=== PATIENT | male | born 1980 | race Caucasian/White ===

== ENCOUNTER → 2017-05-21 | Outpatient (CLI) | payer OTHER ==
--- NOTE | 2017-05-21 10:56 | US ---
EXAMINATION TYPE: US carotid duplex BILAT DATE OF EXAM: 05/21/2017 COMPARISON: US carotid March 20, 2016 CLINICAL HISTORY: I65.29 Carotid occlusion and stenosis. Dizziness, numbness and tingling left side, pt states history of left endart in 2013 EXAM MEASUREMENTS: RIGHT: Peak Systolic Velocity (PSV) cm/sec ----- Right CCA: 95.2 ----- Right ICA: 105.6 ----- Right ECA: 186.5 ICA/CCA ratio: 1.1 RIGHT: End Diastole cm/sec ----- Right CCA: 22.6 ----- Right ICA: 44.8 ----- Right ECA: 17.0 LEFT: Peak Systolic Velocity (PSV) cm/sec ----- Left CCA: 94.1 ----- Left ICA: 117.3 ----- Left ECA: 198.2 ICA/CCA ratio: 1.2 LEFT: End Diastole cm/sec ----- Left CCA: 30.3 ----- Left ICA: 46.1 ----- Left ECA: 28.8 VERTEBRALS (direction of flow): Right Vertebral: Antegrade Left Vertebral: Antegrade Rhythm: Normal Soft plaque left bulb extending into proximal ICA, increased when compared to previous with no evid ence of significant stenosis Elevated velocities bilateral ECA's as seen on previous Grayscale images show mild peripheral plaque at right carotid bulb. There is redemonstration of sever e plaque left carotid bulb prominent than prior study seen best image [id number]. Peak systolic velocity me asurements and ratios remain within normal limits. Increased peak systolic velocity bilateral externa l carotid arteries is again seen. IMPRESSION: Worsening focal atherosclerotic change left carotid bulb with stenosis proximal internal carotid artery approaching but felt just under 50%.
== END | disposition home or self-care (01) ==
LOC: RADUSWWP 10:11
PROVIDERS: ATTEND Family Medicine
DX: I65.22 Occlusion and stenosis of left carotid artery (principal)
CPT/HCPCS: 93880

== ENCOUNTER → 2017-10-14 | Outpatient (CLI) | payer OTHER ==
[2017-10-14 12:07] LABS: T4, Free (Free Thyroxine) 0.97 ng/dL (0.78-2.19)
[2017-10-14 17:57] LABS: Iron Saturation 59.9 (15.00-50.00)
== END | disposition home or self-care (01) ==
LOC: LABWHC1 09:39
PROVIDERS: ATTEND Nurse Practitioner Acute Care
DX: E55.9 Vitamin D deficiency, unspecified (principal); G35 Multiple sclerosis
CPT/HCPCS: 36415; 82306; 82607; 83540; 83550; 84207; 84439; 84443; 84466; 84481

== ENCOUNTER → 2017-10-29 | Outpatient (CLI) | payer OTHER ==
--- NOTE | 2017-10-30 19:04 | MR ---
EXAMINATION TYPE: MR cárdenas wo con DATE OF EXAM: 10/29/2017 COMPARISON: NONE HISTORY: Cervicalgia / M54.5 Lumbago TECHNIQUE: T1 and T2 axial and sagittal images of the lumbar spine are submitted. FINDINGS: There is no abnormal signal seen within the visualized spinal cord or paraspinal soft tissu es. At L1-2 there is no disc herniation or canal stenosis. No foraminal encroachment. Facet arthropathy n oted. At L2-3 there is no disc herniation or canal stenosis. No foraminal encroachment. Facet arthropathy n oted. At L3-4 there is broad-based central disc bulging with facet arthropathy and ligamentum flavum hypert rophy. No Canal stenosis. No foraminal encroachment. At L4-5 there is disc desiccation with broad-based central disc herniation and moderate effacement of thecal sac. Ligamentum flavum hypertrophy and facet arthropathy contribute to spinal stenosis with m ild bilateral foraminal encroachment. At L5-S1 there is no disc herniation or canal stenosis. There is facet arthropathy. No foraminal encr oachment. IMPRESSION: 1. At L4-5 there is a broad-based central disc herniation and moderate effacement of thecal sac. Liga mentum flavum hypertrophy and facet arthropathy contribute to spinal stenosis with mild bilateral for aminal encroachment. 2. Disc bulging L3-L4 with no canal stenosis or foraminal encroachment. EXAMINATION TYPE: MR cárdenas wo con DATE OF EXAM: 10/29/2017 COMPARISON: 10/29/2015 HISTORY: Cervicalgia / M54.5 Lumbago TECHNIQUE: T1 sagittal and coronal, T2 sagittal, and gradient echo axial views of the cervical spine are submitted. FINDINGS: The cranial cervical junction is preserved. There is no abnormal signal seen within the sp inal cord or paraspinal soft tissues. At C2-3 there is no disc herniation or canal stenosis. No foraminal encroachment. At C3-4 there is no disc herniation or canal stenosis. No foraminal encroachment. At C4-5 there is no disc herniation or canal stenosis. No foraminal encroachment. Mild facet arthropa thy. At C5-6 there is minimal central disc bulging. No foraminal encroachment or canal stenosis. Facets ar e stable from previous exam. At C6-7 there is no disc herniation or canal stenosis. No foraminal encroachment. At C7-T1 there is no disc herniation or canal stenosis. No foraminal encroachment. IMPRESSION: 1. Minimal central disc bulging C5-C6 with no canal stenosis or foraminal encroachment. 2. Minimal facet changes involving the lower cervical spine are stable.
== END | disposition home or self-care (01) ==
LOC: RADMRIMAIN 12:12
PROVIDERS: ATTEND Psychiatry & Neurology Neurology
DX: M48.061 Spinal stenosis, lumbar region without neurogenic claudication (principal); M99.73 Connective tissue and disc stenosis of intervertebral foramina of lumbar region; M51.26 Other intervertebral disc displacement, lumbar region; M50.222 Other cervical disc displacement at C5-C6 level; M47.812 Spondylosis without myelopathy or radiculopathy, cervical region; M46.87 Other specified inflammatory spondylopathies, lumbosacral region; Z88.0 Allergy status to penicillin; Z88.1 Allergy status to other antibiotic agents; Z88.8 Allergy status to other drugs, medicaments and biological substances
CPT/HCPCS: 72141; 72148

== ENCOUNTER → 2018-03-20 | Outpatient (CLI) | payer BC, OTHER ==
[2018-03-20 09:48] LABS: Blood Urea Nitrogen 9 mg/dL (9-20)
== END ==
LOC: LABWHC1 09:04
PROVIDERS: ATTEND Nurse Practitioner Acute Care
DX: Z01.812 Encounter for preprocedural laboratory examination (principal); Z88.0 Allergy status to penicillin; Z88.1 Allergy status to other antibiotic agents; Z88.8 Allergy status to other drugs, medicaments and biological substances
CPT/HCPCS: 36415; 82565; 84520

== ENCOUNTER → 2018-03-20 | Outpatient (CLI) | payer BC, OTHER | END | disposition home or self-care (01) | LOC: RADMRIMAIN 08:51 | PROVIDERS: ATTEND Psychiatry & Neurology Neurology | DX: Z53.9 Procedure and treatment not carried out, unspecified reason (principal) ==

== ENCOUNTER → 2018-04-08 | Outpatient (CLI) | payer BC, OTHER ==
--- NOTE | 2018-04-08 10:03 | MR ---
EXAMINATION TYPE: MR brain wo/w con DATE OF EXAM: 04/08/2018 COMPARISON: Prior MRI brain dated 10/29/2015 HISTORY: MS TECHNIQUE: Multiplanar, multisequence images of the brain and brainstem is performed without and with IV contras t, utilizing 10 mL intravenous Gadavist . FINDINGS: Diffusion weighted images demonstrate no evidence of a recent infarct or other diffusion ab normality. There is no extra-axial fluid collection or significant interval change in white matter s ignal abnormality. Scattered hyperintensities numbering approximately 5-10 on T2 and inversion recov shanti sequences are noted in the juxtacortical, deep white matter as on prior exam. Largest focus on ax ial image 20, sagittal image 35 measures only approximately 4 mm as on prior. The ventricular system and cisternal spaces are normal in size and appearance. The brain volume is age appropriate. Midline structures demonstrate normal morphology. The craniocervical junction appears within normal limits. Post contrast images demonstrate no abnormal enhancement. The dural venous sinuses appear pa tent. The visualized sinuses are remarkable for inflammatory change in the frontal sinus, ethmoid air cells, mucus retention cyst in the right maxillary sinus, and the the globes are intact. IMPRESSION: Stable signal changes within the brain. Sinus disease. No acute abnormality.
== END | disposition home or self-care (01) ==
LOC: RADMRIMAIN 08:37
PROVIDERS: ATTEND Nurse Practitioner Acute Care
DX: G35 Multiple sclerosis (principal); Z88.0 Allergy status to penicillin; Z88.1 Allergy status to other antibiotic agents; Z88.8 Allergy status to other drugs, medicaments and biological substances
CPT/HCPCS: 70553; A9581

== ENCOUNTER → 2018-06-03 | Outpatient (CLI) | payer BC ==
[2018-06-04] LABS: Total Protein,CSF 44 mg/dL (12-60)
[2018-06-04 05:17] LABS: Appearance,CSF Clear; CSF Tube Number 4; Nucleated Cells, CSF 0 u/L (0-5)
[2018-06-04 05:19] LABS: Red Blood Cell,CSF 1 u/L (0-10)
[2018-06-05 14:43] LABS: IgG - CSF 1.1 mg/dL (0.0 - 3.4); IgG/Albumin Index (CSF) 0.52 (0.00 - 0.77); Immunoglobulin G 562 mg/dL (700 - 1600)
== END | disposition home or self-care (01) ==
LOC: LABWHC1 13:27
PROVIDERS: ATTEND Nurse Practitioner Acute Care
DX: R90.82 White matter disease, unspecified (principal)
CPT/HCPCS: 36415; 82040; 82042; 82784; 83916; 84157; 87476; 89050

== ENCOUNTER → 2018-06-23 | Outpatient (CLI) | payer BC | END | disposition home or self-care (01) | LOC: LABWHC1 08:21 | PROVIDERS: ATTEND Surgery | DX: N28.9 Disorder of kidney and ureter, unspecified (principal) | CPT/HCPCS: 36415; 82565; 84520 ==

== ENCOUNTER → 2018-07-25 | Outpatient (CLI) | payer BC, OTHER ==
[2018-07-25 08:58] LABS: Basophils # (A) 0.1 k/uL (0-0.2); Basophils % (A) 1 %; Eosinophils # (A) 0.6 k/uL (0-0.7); Eosinophils % (A) 6 %; HCT 46.7 % (39.0-53.0); HGB 15.8 gm/dL (13.0-17.5); Lymphocytes # (A) 2.7 k/uL (1.0-4.8); Lymphocytes % (A) 29 %; MCH 30.9 pg (25.0-35.0); MCHC 33.9 g/dL (31.0-37.0); MCV 91.2 fL (80.0-100.0); Monocytes # (A) 0.6 k/uL (0-1.0); Monocytes % (A) 6 %; Neutrophils # (A) 5.3 k/uL (1.3-7.7); Neutrophils % (A) 56 %; Platelet Count 240 k/uL (150-450); RBC 5.12 m/uL (4.30-5.90); RDW 13.5 % (11.5-15.5); WBC 9.4 k/uL (3.8-10.6)
[2018-07-25 09:00] LABS: Appearance,Urine Clear (Clear); Bilirubin,Urine Negative (Negative); Blood,Urine Negative (Negative); Color,Urine Yellow; Glucose,Urine (UA) Negative (Negative); Ketones,Urine Negative (Negative); Leukocyte Esterase,Urine Negative (Negative); Nitrite,Urine Negative (Negative); PH, Urine 5.5 (5.0-8.0); Protein,Urine Negative (Negative); Specific Gravity,Urine 1.007 (1.001-1.035); Urobilinogen,Urine <2.0 mg/dL (<2.0)
[2018-07-25 09:04] LABS: INR 0.9 (<1.2); Partial Thromboplastin Time 28.5 sec (22.0-30.0); Prothrombin Time 9.9 sec (9.0-12.0)
[2018-07-25 16:53] LABS: Anion Gap 5.3 mmol/L (4.00-12.00); Calcium 9.4 mg/dL (8.7-10.3); Carbon Dioxide 25.7 mmol/L (21.6-31.8); Potassium 4.2 mmol/L (3.5-5.5)
== END | disposition home or self-care (01) ==
LOC: LABWHC1 08:24
PROVIDERS: ATTEND Surgery Vascular Surgery
DX: Z01.812 Encounter for preprocedural laboratory examination (principal); I65.29 Occlusion and stenosis of unspecified carotid artery
CPT/HCPCS: 36415; 80048; 81003; 85025; 85610; 85730; 87086

== ENCOUNTER → 2018-09-01 | Outpatient (CLI) | payer BC, OTHER ==
[2018-09-01 09:09] LABS: INR 0.9 (<1.2); Partial Thromboplastin Time 28.2 sec (22.0-30.0); Prothrombin Time 10.1 sec (9.0-12.0)
[2018-09-01 09:38] LABS: Basophils # (A) 0.1 k/uL (0-0.2); Basophils % (A) 1 %; Eosinophils # (A) 0.4 k/uL (0-0.7); Eosinophils % (A) 5 %; HCT 48.4 % (39.0-53.0); HGB 16.2 gm/dL (13.0-17.5); Lymphocytes # (A) 1.6 k/uL (1.0-4.8); Lymphocytes % (A) 18 %; MCH 31.3 pg (25.0-35.0); MCHC 33.5 g/dL (31.0-37.0); MCV 93.6 fL (80.0-100.0); Mean Platelet Volume 7.2; Monocytes # (A) 0.6 k/uL (0-1.0); Monocytes % (A) 7 %; Neutrophils # (A) 5.7 k/uL (1.3-7.7); Neutrophils % (A) 67 %; Platelet Count 205 k/uL (150-450); RBC 5.18 m/uL (4.30-5.90); RDW 13.6 % (11.5-15.5); WBC 8.5 k/uL (3.8-10.6)
[2018-09-01 09:39] LABS: Appearance,Urine Clear (Clear); Bilirubin,Urine Negative (Negative); Blood,Urine Negative (Negative); Color,Urine Yellow; Glucose,Urine (UA) Negative (Negative); Ketones,Urine Negative (Negative); Leukocyte Esterase,Urine Negative (Negative); Nitrite,Urine Negative (Negative); PH, Urine 5.5 (5.0-8.0); Protein,Urine Negative (Negative); Specific Gravity,Urine 1.008 (1.001-1.035); Urobilinogen,Urine <2.0 mg/dL (<2.0)
--- NOTE | 2018-09-01 10:46 | XR ---
EXAMINATION TYPE: XR chest 2V DATE OF EXAM: 09/01/2018 COMPARISON: 05/27/2015 HISTORY: Chest pain TECHNIQUE: Frontal and lateral views of the chest are obtained. FINDINGS: There is no focal air space opacity. No evidence for pneumothorax. No pleural effusion. The cardiac silhouette size is within normal limits. The osseous structures are grossly intact. IMPRESSION: 1. No acute cardiopulmonary process.
[2018-09-01 17:30] LABS: Albumin 4.4 g/dL (3.80-4.90); Albumin/Globulin Ratio 2.44 (1.20-2.10); Anion Gap 8.3 mmol/L (4.00-12.00); Calcium 9.3 mg/dL (8.7-10.3); Carbon Dioxide 24.7 mmol/L (21.6-31.8); Globulin 1.8 g/dL (1.6-3.3); Potassium 3.8 mmol/L (3.5-5.5); Total Bilirubin 0.6 mg/dL (0.3-1.2); Total Protein 6.2 g/dL (6.2-8.2)
== END | disposition home or self-care (01) ==
LOC: LABWHC1 08:21
PROVIDERS: ATTEND Surgery Vascular Surgery
DX: Z01.818 Encounter for other preprocedural examination (principal); I65.29 Occlusion and stenosis of unspecified carotid artery
CPT/HCPCS: 36415; 71046; 80053; 81003; 85025; 85610; 85730; 87086

== ENCOUNTER → 2018-09-15 | Outpatient (CLI) | payer BC, OTHER ==
--- NOTE | 2018-09-15 09:38 | XR ---
EXAMINATION TYPE: XR chest 2V DATE OF EXAM: 09/15/2018 COMPARISON: NONE TECHNIQUE: PA and lateral views submitted. HISTORY: Pain FINDINGS: The lungs are clear and there is no pneumothorax, pleural effusion, or focal pneumonia. Mild hyperi nflation. IMPRESSION: 1. No acute process.
--- NOTE | 2018-09-15 09:40 | XR ---
EXAMINATION TYPE: XR ribs LT DATE OF EXAM: 09/15/2018 COMPARISON: NONE HISTORY: Pain TECHNIQUE: 6 views submitted FINDINGS: Osseous structures intact. Lung duckworth clear. No pleural effusion or pneumothorax. IMPRESSION: No acute displaced rib fracture.
== END | disposition home or self-care (01) ==
LOC: RADXRMAIN 09:02
PROVIDERS: ATTEND Family Medicine
DX: R07.81 Pleurodynia (principal)
CPT/HCPCS: 71046

== ENCOUNTER 2019-03-01 05:25 | Emergency (ER) | payer BC ==
[2019-03-01 05:40] VITALS: BP 130/84; PULSE 71; RESP 20; TEMP 97.5
[2019-03-01] MEDS ORDERED: IBUPROFEN 400 MG TAB PO STA (05:46)
[2019-03-01] MEDS ORDERED: HYDROcodone/APAP 5-325MG 1 EACH TAB PO STA (05:46)
--- NOTE | 2019-03-01 07:18 | XR ---
EXAMINATION TYPE: XR lumbar spine 2 or 3V , 3 VIEWS DATE OF EXAM ORDERED: 03/01/2019 HISTORY: Pain. COMPARISON: Previous study dated 06/03/2013. FINDINGS: There is a mild dextroscoliosis. Vertebral body height and alignment are maintained. There is no spondylolysis or spondylolisthesis. N o fractures are identified. The pedicles are intact. IMPRESSION: MINIMAL LEVOSCOLIOSIS.
[2019-03-01] MEDS ORDERED: predniSONE 50 MG TAB PO STA (07:24)
--- NOTE | 2019-03-01 07:30 | ED ---
General Adult HPI - General Chief complaint: Back Pain/Injury Stated complaint: Back/Hip/Leg Pain Time Seen by Provider: 03/01/19 07:00 Source: patient, RN notes reviewed, old records reviewed Mode of arrival: ambulatory Limitations: no limitations - History of Present Illness Initial comments: 38-year-old male patient past medical history hypertension, GERD, chronic lumbar back pain presents to ED with approximately 30 to exacerbation of lumbar back pain. Patient reports that he is working on his boat, do not the physical exertion and contorting his body and reports that he has exacerbations left lumbar back pain. Patient reports that this radiates down his posterior left gluteal region and down his posterior upper leg. Patient was seen by his primary care physician for this and have a Medrol Dosepak. Patient currently takes [place] regularly for this pain. Patient does report that he has outpatient orthopedic follow-up in one week. Patient also reports that he is scheduled to start physical therapy. Patient states that he presenting today primarily for symptomatic treatment as it has been 3 weeks and is still continue to have this pain. Patient denies any loss of bowel or bladder control, I'll anesthesia, lower extremity weakness, any red flag symptoms. Systemic: Pt denies fatigue, fever/chills, rash. Pt denies weakness, night sweats, weight loss. Neuro: Pt denies headache, visual disturbances, syncope or pre-syncope. HEENT: Pt denies ocular discharge or irritation, otalgia, rhinorrhea, pharyngitis or notable lymphadenopathy. Cardiopulmonary: Pt denies chest pain, SOB, heart palpitations, dyspnea on exertion. Abdominal/GI: Pt denies abdominal pain, n/v/d. : Pt denies dysuria, burning w/ urination, frequency/urgency. Denies new onset urinary or bowel incontinence. MSK: Pt denies loss of strength or function in extremities. Neuro: Pt denies new onset weakness, paresthesias. - Related Data Home Medications Medication Instructions Recorded Confirmed Fluticasone/Salmeterol [Advair 1 puff INHALATION RT-BID 01/06/14 12/07/15 250-50 Diskus] Albuterol Sulfate [Ventolin HFA] 1 - 2 puff INHALATION RT-Q4H PRN 10/24/14 12/07/15 Dimethyl Fumarate [Tecfidera] 240 mg PO BID 10/24/14 12/07/15 Ergocalciferol [Vitamin D2 2,000 units PO HS 10/24/14 12/07/15 (DRISDOL)] Metoprolol Succinate (ER) [Toprol 100 mg PO 1400 10/24/14 12/07/15 XL] amLODIPine BESYLATE [Norvasc] 10 mg PO QAM 10/24/15 12/07/15 buPROPion HCL [Wellbutrin] 150 mg PO QAM 10/24/15 12/07/15 Benazepril [Lotensin] 40 mg PO QAM 11/16/15 12/07/15 Hydrochlorothiazide 25 mg PO QAM 11/16/15 12/07/15 Previous Rx's Medication Instructions Recorded HYDROcodone/APAP 7.5-325MG [[place] 1 tab PO Q6HR PRN #28 tab 12/08/15 7.5-325] predniSONE 50 mg PO DAILY #4 tab 03/01/19 Allergies Allergy/AdvReac Type Severity Reaction Status Date / Time levofloxacin [From Levaquin] Allergy Confusion Verified 03/01/19 05:40 nortriptyline Allergy Rash/Hives Verified 03/01/19 05:40 Penicillins Allergy Swelling Verified 03/01/19 05:40 Review of Systems ROS Statement: Those systems with pertinent positive or pertinent negative responses have been documented in the HPI. ROS Other: All systems not noted in ROS Statement are negative. Past Medical History Past Medical History: Asthma, GERD/Reflux, Hypertension, Neurologic Disorder Additional Past Medical History / Comment(s): multiple sclerosis, sees dr coulter "because i make to much blood"- pt has blood removed twice per year, 400-500ml History of Any Multi-Drug Resistant Organisms: MRSA Date of last positivie culture/infection: 2012 MDRO Source:: face Additional Past Surgical History / Comment(s): mole removed on chest, EGD. 06/02/15 left carotid endardectomy, [facility] 12/07/2015 Past Anesthesia/Blood Transfusion Reactions: No Reported Reaction Past Psychological History: ADD/ADHD, Anxiety, Depression Smoking Status: Current every day smoker Past Alcohol Use History: Rare Past Drug Use History: None Reported - Past Family History Mother Family Medical History: No Reported History Father Family Medical History: Cancer, Diabetes Mellitus Additional Family Medical History / Comment(s): lung cancer General Exam - General Exam Comments Initial Comments: Constitutional: NAD, AOX3, Pt has pleasant affect. HEENT: NC/AT, trachea midline, neck supple, no lymphadenopathy. Posterior pharynx non erythematous, without exudates. External ears appear normal, without discharge. Mucous membranes moist. Eyes PERRLA, EOM intact. There is no scleral icterus. No pallor noted. Cardiopulmonary: RRR, no murmurs, rubs or gallops, no JVD noted. Lungs CTAB in anterior and posterior duckworth. No peripheral edema. Abdominal exam: Abdomen soft and non-distended. Abdomen non-tender to palpation in all 4 quadrants. Bowel sounds active in LLQ. No hepatosplenomegaly. No ecchymosis Neuro: CN II-XII grossly intact. No nuchal rigidity. No raccon eyes, no main sign, no hemotympanum. No cervical spinal tenderness. MSK: Left straight leg raise positive, right straight leg raise negative. No midline cervical thoracic lumbar tenderness. Mild left paralumbar tenderness. Ambulatory without difficulty. No posterior calf tenderness bilaterally, homans sign negative bilaterally. Posterior tibialis and radial pulse +2 bilaterally. Sensation intact in upper and lower extremities. Full active ROM in upper and lower extremities, 5/5 stregnth. Limitations: no limitations Course Vital Signs 03/01/19 05:35 Temperature 97.5 F L Pulse Rate 71 Respiratory 20 Rate Blood Pressure 130/84 O2 Sat by Pulse 99 Oximetry Medical Decision Making - Medical Decision Making 38-year-old male patient presents ED chief complaint of exacerbation of chronic lumbar back pain. Patient wasn't stable, afebrile. Physical exam consistent with lumbar back pain with radiculopathy. Plain film of her spine displayed minimal levoscoliosis. Patient administered home medications as well as steroids. Patient discharged with 4 days of steroids, out patient follow up with orthopedic consult. Return precautions discussed, case discussed with Dr. Crabtree. Disposition Clinical Impression: Lumbar back pain Disposition: HOME SELF-CARE Condition: Stable Instructions (If sedation given, give patient instructions): Acute Low Back Pain (ED) Additional Instructions: Patient to adhere to previously discussed treatment plan and will take medication(s) as directed. Patient to follow up with PCP in 1-2 days. Patient to return to ED if symptoms do not improve. Take medication as directed. Follow up with primary care provider and orthopedic consult. If unable to follow-up to previously scheduled orthopedic consult in [facility] additional was provided. Return to ER if condition worsens. Prescriptions: predniSONE 50 mg PO DAILY #4 tab Is patient prescribed a controlled substance at d/c from ED?: No Referrals: Marcelina Masters MD [Primary Care Provider] - 1-2 days Daya Ohara DO [Doctor of Osteopathic Medicine] - 1-2 days
== END 2019-03-01 07:46 | disposition home or self-care (01) ==
LOC: EC 05:25
DX: G89.29 Other chronic pain (principal); M54.16 Radiculopathy, lumbar region; M41.86 Other forms of scoliosis, lumbar region; F17.200 Nicotine dependence, unspecified, uncomplicated; J45.909 Unspecified asthma, uncomplicated; G35 Multiple sclerosis; I10 Essential (primary) hypertension; F41.9 Anxiety disorder, unspecified; F32.9 Major depressive disorder, single episode, unspecified; Z79.51 Long term (current) use of inhaled steroids; Z79.899 Other long term (current) drug therapy; Z88.0 Allergy status to penicillin; Z88.1 Allergy status to other antibiotic agents; Z88.8 Allergy status to other drugs, medicaments and biological substances
CPT/HCPCS: 99284; 72100; J7512

== ENCOUNTER → 2019-03-14 | Outpatient (CLI) | payer BC ==
--- NOTE | 2019-03-14 10:06 | MR ---
MR lumbar spine wo con Back pain Multiplanar, multiecho imaging of the lumbar spine was obtained without contrast on a 3 Sonia magnet. REFERENCE:None. FINDINGS: Paraspinal soft tissues are normal. Vertebral body height and alignment are maintained. Cord signal is maintained. The conus ends normall y at the level of the L1-2 disc level. At T12-L1, no abnormalities demonstrated. At L1-2, there are hypertrophic changes in the facets. At L2-3, there is mild, bilateral intervertebral foraminal narrowing. There is no significant oswaldo sive discopathy. There are hypertrophic changes in the facets. At L3-4, the intervertebral foramina are reasonably well-maintained. There is a diffuse disc displace ment. Intervertebral foramina appear reasonably well-maintained. There are hypertrophic changes in th e facets. There is mild trefoiling of the thecal sac. There is bilateral intervertebral foraminal david rowing At L4-5, there is bilateral intervertebral foraminal narrowing, worse on the left than the right. The re is a broad-based disc protrusion which extends into both intervertebral foramina.. This hypertroph ic change and capsulitis within the facets. There is mild central canal compromise. At L5-S1, the intervertebral foramina are reasonably well-maintained. There is no significant oswaldo sive discopathy. There are hypertrophic changes and capsulitis within the facets. IMPRESSION: 1. DIFFUSE DEGENERATIVE DISC DISEASE AND FACET ARTHROPATHY. 2. MULTILEVEL INTERVERTEBRAL FORAMINAL NARROWING. 3. VARYING DEGREES OF CENTRAL CANAL COMPROMISE MOST MARKED AT L4-5.
== END ==
LOC: RADMRIMAIN 07:10
PROVIDERS: ATTEND Family Medicine
DX: M48.061 Spinal stenosis, lumbar region without neurogenic claudication (principal); M51.16 Intervertebral disc disorders with radiculopathy, lumbar region; M46.96 Unspecified inflammatory spondylopathy, lumbar region
CPT/HCPCS: 72148

== ENCOUNTER 2020-09-26 06:14 | Emergency (ER) | payer BC ==
[2020-09-26 06:25] VITALS: PULSE 75; RESP 20; TEMP 98
[2020-09-26] MEDS ORDERED: methylPREDNISolone SOD SUCCI 125 MG/2 ML VIAL IM ONE (06:51)
[2020-09-26] MEDS ORDERED: HYDROcodone/APAP 7.5-325MG 1 EACH TAB PO ONE (06:51)
--- NOTE | 2020-09-26 06:51 | ED ---
Back Pain HPI - General Chief Complaint: Back Pain/Injury Stated Complaint: back pain Time Seen by Provider: 09/26/20 06:26 Source: patient Limitations: no limitations - History of Present Illness Initial Comments: Patient is a 40-year-old male with history of chronic low back pain presenting to emergency Department with complaints of an increase in the left low back. Patient states yesterday he sat down to put on some socks and when he bent over he felt a pull in his left low back. Patient states ever since then he's been having pain. No radiation. He states it feels best when he sitting or lying down. Hurts worse when he is standing up. Patient does see Dr. Blakely, he has an lumbar epidural planned for the end of this week. Patient already takes [place] as at home. He did take one about an hour prior to arrival. He states it did help with the pain slightly. Denies any fever or chills, no numbness and tingling to extremities, no saddle paresthesias. No bowel or bladder incontinence. Patient has no further complaints at this time. - Related Data Home Medications Medication Instructions Recorded Confirmed Fluticasone/Salmeterol [Advair 1 puff INHALATION RT-BID 01/06/14 12/07/15 250-50 Diskus] Albuterol Sulfate [Ventolin HFA] 1 - 2 puff INHALATION RT-Q4H PRN 10/24/14 12/07/15 Dimethyl Fumarate [Tecfidera] 240 mg PO BID 10/24/14 12/07/15 Ergocalciferol [Vitamin D2 2,000 units PO HS 10/24/14 12/07/15 (DRISDOL)] Metoprolol Succinate (ER) [Toprol 100 mg PO 1400 10/24/14 12/07/15 XL] amLODIPine BESYLATE [Norvasc] 10 mg PO QAM 10/24/15 12/07/15 buPROPion HCL [Wellbutrin] 150 mg PO QAM 10/24/15 12/07/15 Benazepril [Lotensin] 40 mg PO QAM 11/16/15 12/07/15 hydroCHLOROthiazide 25 mg PO QAM 11/16/15 12/07/15 Previous Rx's Medication Instructions Recorded HYDROcodone/APAP 7.5-325MG [[place] 1 tab PO Q6HR PRN #28 tab 12/08/15 7.5-325] predniSONE 50 mg PO DAILY #4 tab 09/26/20 Allergies Allergy/AdvReac Type Severity Reaction Status Date / Time levofloxacin [From Levaquin] Allergy Confusion Verified 09/26/20 06:25 nortriptyline Allergy Rash/Hives Verified 09/26/20 06:25 Penicillins Allergy Swelling Verified 09/26/20 06:25 Review of Systems ROS Statement: Those systems with pertinent positive or pertinent negative responses have been documented in the HPI. ROS Other: All systems not noted in ROS Statement are negative. Past Medical History Past Medical History: Asthma, GERD/Reflux, Hypertension, Neurologic Disorder Additional Past Medical History / Comment(s): multiple sclerosis, sees dr coulter "because i make to much blood"- pt has blood removed twice per year, 400-500ml History of Any Multi-Drug Resistant Organisms: MRSA Date of last positivie culture/infection: 2012 MDRO Source:: face Additional Past Surgical History / Comment(s): mole removed on chest, EGD. 06/02/15 left carotid endardectomy, [place] 12/07/2015 Past Anesthesia/Blood Transfusion Reactions: No Reported Reaction Past Psychological History: ADD/ADHD, Anxiety, Depression Smoking Status: Current every day smoker Past Alcohol Use History: Rare Past Drug Use History: None Reported - Past Family History Mother Family Medical History: No Reported History Father Family Medical History: Cancer, Diabetes Mellitus Additional Family Medical History / Comment(s): lung cancer General Exam - General Exam Comments Initial Comments: GENERAL: Patient is well-developed and well-nourished. Patient is nontoxic and in no acute distress. HEAD: Atraumatic, normocephalic. EYES: Pupils equal round and reactive to light, extraocular movements intact, sclera anicteric, conjunctiva are normal. Eyelids were unremarkable. ENT: TMs normal, nares patent, oropharynx clear without exudates. Moist mucous membranes. NECK: Normal range of motion, supple without lymphadenopathy or JVD. LUNGS: Unlabored respirations. Breath sounds clear to auscultation bilaterally and equal. No wheezes rales or rhonchi. HEART: Regular rate and rhythm without murmurs, rubs or gallops. ABDOMEN: Soft, nontender, normoactive bowel sounds. No guarding, no rebound. No masses appreciated. : Deferred MUSCULOSKELETAL: Normal extremities with adequate strength and normal range of motion, no pitting or edema. No clubbing or cyanosis. Mild pain with palpation the lumbar paraspinals on the left side, he has full trunk range of motion, increased pain with trunk extension. His neurovascular intact. Sensation is equal bilateral lower extremities. NEUROLOGICAL: Patient is alert and oriented x 3. Motor and sensory are also intact. Cranial nerves II through XII grossly intact. Symmetrical smile. Normal speech, normal gait. PSYCH: Normal mood, normal affect. SKIN: Warm, Dry, normal turgor, no rashes or lesions noted. Limitations: no limitations Course Vital Signs 09/26/20 06:21 Temperature 98 F Pulse Rate 75 Respiratory 20 Rate O2 Sat by Pulse 100 Oximetry Medical Decision Making - Medical Decision Making Patient is a 40-year-old male here for an acute extra-axial patient of chronic low back pain. Patient bent over yesterday to put on some [place] he had some pain in the left lower back. No falls or trauma. His exam is consistent with muscle skeletal in nature. No acute neuro deficits, no signs of cauda equina. Patient does see Dr. Blakely, he already takes [place]'s. He has a lumbar epidural plan for the end of this week. He is not suppose to take NSAIDs for 7 days prior to his epidurals. He took one [place] about an hour prior to arrival. He states it did help. I will give him a single tablet to take home to take in about 4 hours, also give him a dose of steroids today. Patient needs to follow up with Dr. Blakely's office for further pain control. Patient is in agreement with this plan of care. Disposition Clinical Impression: Acute exacerbation of chronic low back pain Disposition: HOME SELF-CARE Condition: Stable Instructions (If sedation given, give patient instructions): Acute Low Back Pain (ED) Additional Instructions: Please return to the Emergency Department if symptoms worsen or any other concerns. Take steriods as prescribed. Follow-up with Dr. Blakely. Prescriptions: predniSONE 50 mg PO DAILY #4 tab Is patient prescribed a controlled substance at d/c from ED?: No Referrals: Marcelina Masters MD [Primary Care Provider] - 1-2 days Lakisha Blakely MD [Medical Doctor] - 1-2 days
== END 2020-09-26 06:59 | disposition home or self-care (01) ==
LOC: EC 06:14
DX: M54.5 Low back pain (principal); G89.29 Other chronic pain; J45.909 Unspecified asthma, uncomplicated; K21.9 Gastro-esophageal reflux disease without esophagitis; I10 Essential (primary) hypertension; F41.9 Anxiety disorder, unspecified; F32.9 Major depressive disorder, single episode, unspecified; F90.9 Attention-deficit hyperactivity disorder, unspecified type; F17.200 Nicotine dependence, unspecified, uncomplicated; Z79.899 Other long term (current) drug therapy; Z79.51 Long term (current) use of inhaled steroids; Z88.0 Allergy status to penicillin; Z88.1 Allergy status to other antibiotic agents; Z88.8 Allergy status to other drugs, medicaments and biological substances; Z86.14 Personal history of Methicillin resistant Staphylococcus aureus infection; X50.1XXA Overexertion from prolonged static or awkward postures, initial encounter
CPT/HCPCS: 99283; 96372; J2930

== ENCOUNTER → 2021-07-24 | Outpatient (CLI) | payer BC | END | disposition home or self-care (01) | LOC: LABPAT 09:27 | PROVIDERS: ATTEND Psychiatry & Neurology Neurology | DX: Z01.812 Encounter for preprocedural laboratory examination (principal); Z20.822 Contact with and (suspected) exposure to COVID-19 | CPT/HCPCS: U0003; C9803 ==

== ENCOUNTER 2022-03-30 09:51 | Emergency (ER) | payer BC, OTHER ==
[2022-03-30 09:55] VITALS: BP 161/76; PULSE 75; RESP 20; TEMP 97.5
--- NOTE | 2022-03-30 10:21 | ED ---
Recheck HPI - General Chief Complaint: Recheck/Abnormal Lab/Rx Stated Complaint: lab recheck Time Seen by Provider: 03/30/22 09:56 Source: patient, RN notes reviewed Mode of arrival: ambulatory Limitations: no limitations - History of Present Illness Initial Comments: This is a 41-year-old male who presents to the emergency department for abnormal labs per the instruction of his primary care provider. These labs were available for review in our system. He was found to have hyperkalemia with a potassium of 6.3. There was no comment of hemolysis. There was also no evidence of prior hyperkalemia on his lab work. Patient currently denies any chest pain or other symptoms. Denies any fevers, chills, sore throat, cough, dyspnea, chest pain, palpitations, abdominal pain, nausea, vomiting, diarrhea, back pain, or headaches. MD Complaint: abnormal lab Context: called for abnormal lab result Associated Symptoms: none - Related Data Home Medications Medication Instructions Recorded Confirmed Fluticasone/Salmeterol [Advair 1 puff INHALATION RT-BID 01/06/14 12/07/15 250-50 Diskus] Albuterol Sulfate [Ventolin HFA] 1 - 2 puff INHALATION RT-Q4H PRN 10/24/14 12/07/15 Dimethyl Fumarate [Tecfidera] 240 mg PO BID 10/24/14 12/07/15 Ergocalciferol [Vitamin D2 2,000 units PO HS 10/24/14 12/07/15 (DRISDOL)] Metoprolol Succinate (ER) [Toprol 100 mg PO 1400 10/24/14 12/07/15 XL] amLODIPine BESYLATE [Norvasc] 10 mg PO QAM 10/24/15 12/07/15 buPROPion HCL [Wellbutrin] 150 mg PO QAM 10/24/15 12/07/15 Benazepril [Lotensin] 40 mg PO QAM 11/16/15 12/07/15 hydroCHLOROthiazide 25 mg PO QAM 11/16/15 12/07/15 Previous Rx's Medication Instructions Recorded HYDROcodone/APAP 7.5-325MG [[place] 1 tab PO Q6HR PRN #28 tab 12/08/15 7.5-325] predniSONE 50 mg PO DAILY #4 tab 09/26/20 Allergies Allergy/AdvReac Type Severity Reaction Status Date / Time levofloxacin [From Levaquin] Allergy Confusion Verified 03/30/22 09:54 nortriptyline Allergy Rash/Hives Verified 03/30/22 09:54 Penicillins Allergy Swelling Verified 03/30/22 09:54 Review of Systems ROS Statement: Those systems with pertinent positive or pertinent negative responses have been documented in the HPI. ROS Other: All systems not noted in ROS Statement are negative. Past Medical History Past Medical History: Asthma, GERD/Reflux, Hypertension, Neurologic Disorder Additional Past Medical History / Comment(s): multiple sclerosis, sees dr coulter "because i make to much blood"- pt has blood removed twice per year, 400-500ml History of Any Multi-Drug Resistant Organisms: MRSA Date of last positivie culture/infection: 2012 MDRO Source:: face Past Surgical History: Back Surgery Additional Past Surgical History / Comment(s): mole removed on chest, EGD. 06/02/15 left carotid endardectomy, [place] 12/07/2015 Past Anesthesia/Blood Transfusion Reactions: No Reported Reaction Past Psychological History: ADD/ADHD, Anxiety, Depression Smoking Status: Current every day smoker Past Alcohol Use History: Rare Past Drug Use History: None Reported - Past Family History Mother Family Medical History: No Reported History Father Family Medical History: Cancer, Diabetes Mellitus Additional Family Medical History / Comment(s): lung cancer General Exam Limitations: no limitations General appearance: alert, in no apparent distress Head exam: Present: atraumatic, normocephalic, normal inspection Respiratory exam: Present: normal lung sounds bilaterally. Absent: respiratory distress, wheezes, rales, rhonchi, stridor Cardiovascular Exam: Present: regular rate, normal rhythm, normal heart sounds. Absent: systolic murmur, diastolic murmur, rubs, gallop, clicks Neurological exam: Present: alert, oriented X3, CN II-XII intact Psychiatric exam: Present: normal affect, normal mood Skin exam: Present: warm, dry, intact, normal color. Absent: rash Course Vital Signs 03/30/22 09:52 Temperature 97.5 F L Pulse Rate 75 Respiratory 20 Rate Blood Pressure 161/76 O2 Sat by Pulse 99 Oximetry Medical Decision Making - Medical Decision Making This is a 41-year-old male who presents to the emergency department for hyperkalemia as noted on lab work obtained by his primary care provider yesterday. Will recheck labs with a CBC, CMP, magnesium, and phosphorus. Will also obtain EKG. Repeat labs revealed a potassium that is within normal limits at 4.7. The sample from yesterday was most likely hemolyzed. Patient is stable for discharge home. Return precautions reviewed in depth, the patient is instructed to return to the emergency department with any new, worsening, or concerning symptoms. Patient verbalized understanding. This case was discussed in detail with the attending ED physician. Presentation, findings, and treatment plan discussed in detail as well. - Lab Data Result diagrams: 03/30/22 10:59 03/30/22 10:59 Lab Results 03/30/22 03/30/22 Range/Units 10:59 10:59 WBC 9.7 (3.8-10.6) k/uL RBC 6.10 H (4.30-5.90) m/uL Hgb 18.2 H (13.0-17.5) gm/dL Hct 54.6 H (39.0-53.0) % MCV 89.4 (80.0-100.0) fL MCH 29.8 (25.0-35.0) pg MCHC 33.3 (31.0-37.0) g/dL RDW 12.6 (11.5-15.5) % Plt Count 232 (150-450) k/uL MPV 8.0 Neutrophils % 68 % Lymphocytes % 20 % Monocytes % 7 % Eosinophils % 3 % Basophils % 1 % Neutrophils # 6.6 (1.3-7.7) k/uL Lymphocytes # 1.9 (1.0-4.8) k/uL Monocytes # 0.7 (0-1.0) k/uL Eosinophils # 0.3 (0-0.7) k/uL Basophils # 0.1 (0-0.2) k/uL Sodium 139 (137-145) mmol/L Potassium 4.7 (3.5-5.1) mmol/L Chloride 104 (98-107) mmol/L Carbon Dioxide 24 (22-30) mmol/L Anion Gap 11 mmol/L BUN 10 (9-20) mg/dL Creatinine 0.84 (0.66-1.25) mg/dL Est GFR (CKD-EPI)AfAm >90 (>60 ml/min/1.73 sqM) Est GFR (CKD-EPI)NonAf >90 (>60 ml/min/1.73 sqM) Glucose 85 (74-99) mg/dL Calcium 9.5 (8.4-10.2) mg/dL Phosphorus 4.2 (2.5-4.5) mg/dL Magnesium 1.9 (1.6-2.3) mg/dL Total Bilirubin 0.5 (0.2-1.3) mg/dL AST 24 (17-59) U/L ALT 42 (4-49) U/L Alkaline Phosphatase 64 (38-126) U/L Total Protein 7.2 (6.3-8.2) g/dL Albumin 4.4 (3.5-5.0) g/dL - EKG Data EKG Comments: Sinus rhythm. Ventricular rate 65 bpm, WI interval 181 ms, QRS duration 102 ms, QTC 401 milliseconds. Disposition Clinical Impression: Abnormal laboratory test Disposition: HOME SELF-CARE Additional Instructions: Return to the emergency department with any new, worsening, or concerning symptoms. Is patient prescribed a controlled substance at d/c from ED?: No Referrals: Will Dumont [Primary Care Provider] - 1-2 days
[2022-03-30 11:09] LABS: Basophils # (A) 0.1 k/uL (0-0.2); Basophils % (A) 1 %; Eosinophils # (A) 0.3 k/uL (0-0.7); Eosinophils % (A) 3 %; HCT 54.6 % (39.0-53.0); HGB 18.2 gm/dL (13.0-17.5); Lymphocytes # (A) 1.9 k/uL (1.0-4.8); Lymphocytes % (A) 20 %; MCH 29.8 pg (25.0-35.0); MCHC 33.3 g/dL (31.0-37.0); MCV 89.4 fL (80.0-100.0); Monocytes # (A) 0.7 k/uL (0-1.0); Monocytes % (A) 7 %; Neutrophils # (A) 6.6 k/uL (1.3-7.7); Neutrophils % (A) 68 %; Platelet Count 232 k/uL (150-450); RDW 12.6 % (11.5-15.5); WBC 9.7 k/uL (3.8-10.6)
[2022-03-30 11:20] LABS: ALT 42 U/L (4-49); AST 24 U/L (17-59); African American GFR (CKD) >90 (>60 ml/min/1.73 sqM); Albumin 4.4 g/dL (3.5-5.0); Alkaline Phosphatase 64 U/L (38-126); Anion Gap 11 mmol/L; Blood Urea Nitrogen 10 mg/dL (9-20); Calcium 9.5 mg/dL (8.4-10.2); Carbon Dioxide 24 mmol/L (22-30); Chloride 104 mmol/L (98-107); Glucose 85 mg/dL (74-99); Magnesium 1.9 mg/dL (1.6-2.3); Non-African American GFR(CKD) >90 (>60 ml/min/1.73 sqM); Phosphorus 4.2 mg/dL (2.5-4.5); Potassium 4.7 mmol/L (3.5-5.1); Sodium 139 mmol/L (137-145); Total Bilirubin 0.5 mg/dL (0.2-1.3); Total Protein 7.2 g/dL (6.3-8.2)
== END 2022-03-30 11:56 | disposition home or self-care (01) ==
LOC: EC 09:51
DX: R79.9 Abnormal finding of blood chemistry, unspecified (principal); J45.909 Unspecified asthma, uncomplicated; I10 Essential (primary) hypertension; F17.200 Nicotine dependence, unspecified, uncomplicated; Z88.0 Allergy status to penicillin; Z88.8 Allergy status to other drugs, medicaments and biological substances
CPT/HCPCS: 36415; 80053; 83735; 84100; 85025; 93005

== ENCOUNTER 2023-04-23 16:44 | Emergency (ER) | payer OTHER ==
--- NOTE | 2023-04-23 16:57 | ED ---
General Adult HPI - General Stated complaint: foot injury - History of Present Illness Initial comments: 42-year-old male presents to the chief complaint of foot injury. Patient states approximately an hour ago he had a large metal aletha fell backwards landing onto both feet. Now notes pain in bilateral feet however notes pain in the left foot worse. Has been able to ambulate however notes pain with ambulation. No other injury at this time. - Related Data Home Medications Medication Instructions Recorded Confirmed Albuterol Sulfate [Ventolin HFA] 1 - 2 puff INHALATION RT-Q4H PRN 10/24/14 09/24/22 Metoprolol Succinate (ER) [Toprol 100 mg PO 1400 10/24/14 09/24/22 XL] Benazepril [Lotensin] 40 mg PO QAM 11/16/15 09/24/22 Allergies Allergy/AdvReac Type Severity Reaction Status Date / Time levofloxacin [From Levaquin] Allergy Confusion Verified 04/23/23 16:57 Penicillins Allergy Swelling Verified 04/23/23 16:57 Review of Systems ROS Statement: Those systems with pertinent positive or pertinent negative responses have been documented in the HPI. ROS Other: All systems not noted in ROS Statement are negative. Past Medical History Past Medical History: Asthma, GERD/Reflux, Hypertension Additional Past Medical History / Comment(s): multiple sclerosis, sees dr coulter "because i make to much blood"- pt has blood removed twice per year, 400-500ml History of Any Multi-Drug Resistant Organisms: None Reported, MRSA Date of last positivie culture/infection: 2012 MDRO Source:: face Past Surgical History: Back Surgery Additional Past Surgical History / Comment(s): mole removed on chest, EGD. 06/02/15 left carotid endardectomy, [place] 12/07/2015 Past Anesthesia/Blood Transfusion Reactions: No Reported Reaction Past Psychological History: ADD/ADHD, Anxiety, Depression Smoking Status: Current every day smoker Past Alcohol Use History: Rare Additional Past Alcohol Use History / Comment(s): started 08/13 - ppd "depends on the day" Past Drug Use History: None Reported - Past Family History Mother Family Medical History: No Reported History Father Family Medical History: Cancer, Diabetes Mellitus Additional Family Medical History / Comment(s): lung cancer General Exam General appearance: alert Head exam: Present: normal inspection Neck exam: Present: normal inspection Respiratory exam: Present: normal lung sounds bilaterally Cardiovascular Exam: Present: regular rate, normal rhythm GI/Abdominal exam: Present: soft Extremities exam: Present: normal inspection, other (Ambulates without significant difficulty. There is to palpation over the bilateral feet however worse on the left over the second metatarsal. Strength and sensation intact at the feet bilaterally. DP/PT pulses 2+.) Back exam: Present: normal inspection Neurological exam: Present: alert, oriented X3 Skin exam: Present: warm, dry Course Vital Signs 04/23/23 16:55 Temperature 98.1 F Pulse Rate 73 Respiratory 18 Rate Blood Pressure 158/92 O2 Sat by Pulse 97 Oximetry Medical Decision Making - Medical Decision Making Was pt. sent in by a medical professional or institution (, PA, BUTTON CUTTER, urgent care, hospital, or skilled nursing...) When possible be specific @ -No Did you speak to anyone other than the patient for history (EMS, parent, family, police, friend...)? What history was obtained from this source @ -No Did you review nursing and triage notes (agree or disagree)? Why? @ -I reviewed and agree with nursing and triage notes Were old charts reviewed (outside hosp., previous admission, EMS record, old EKG, old radiological studies, urgent care reports/EKG's, skilled nursing records)? Report findings @ -No old charts were reviewed Differential Diagnosis (chest pain, altered mental status, abdominal pain women, abdominal pain men, vaginal bleeding, weakness, fever, dyspnea, syncope, headache, dizziness, GI bleed, back pain, seizure, CVA, palpatations, mental health, musculoskeletal)? @ -Differential Musculoskeletal Muscular strain, contusion, ligament sprain, fracture, arthritis, septic arthritis, bursitis, cellulitis, muscle spasm, nerve compression, DVT, arterial occlusion, herpes zoster, electrolyte abnormality, tumor.... This is not meant to be in all inclusive list EKG interpreted by me (3pts min.). @ -None X-rays interpreted by me (1pt min.). @ -X-ray of the foot independently reviewed by me. X-ray of the left foot shows a nondisplaced second metatarsal fracture. CT interpreted by me (1pt min.). @ -None done U/S interpreted by me (1pt. min.). @ -None done What testing was considered but not performed or refused? (CT, X-rays, U/S, labs)? Why? @ -None What meds were considered but not given or refused? Why? @ -None Did you discuss the management of the patient with other professionals (professionals i.e. , PA, BUTTON CUTTER, lab, RT, psych nurse, high school social studies tutor, judicial clerk, teacher, global safety officer, high risk case manager)? Give summary @ -No Was smoking cessation discussed for >3mins.? @ -No Was critical care preformed (if so, how long)? @ -No Were there social determinants of health that impacted care today? How? (Homelessness, low income, unemployed, alcoholism, drug addiction, transportation, low edu. Level, literacy, decrease access to med. care, usp, rehab)? @ -No Was there de-escalation of care discussed even if they declined (Discuss DNR or withdrawal of care, Hospice)? DNR status @ -No What co-morbidities impacted this encounter? (DM, HTN, Smoking, COPD, CAD, Cancer, CVA, ARF, Chemo, Hep., AIDS, mental health diagnosis, sleep apnea, morbid obesity)? @ -None Was patient admitted / discharged? Hospital course, mention meds given and route, prescriptions, significant lab abnormalities, going to OR and other pertinent info. @ -Discharge 42-year-old male presenting to the ED after injury where metal pipes fell onto his bilateral feet. X-ray of the right foot shows no acute finding however x- ray of the left foot shows nondisplaced fracture of the second metatarsal. Patient placed in a short posterior leg splint and given arches. Provided referral to orthopedics. Discharged home in stable condition. Advised no weightbearing onto left foot until follow-up with orthopedics. Discussed return precautions with patient who verbalizes agree. Undiagnosed new problem with uncertain prognosis? @ -No Drug Therapy requiring intensive monitoring for toxicity (Heparin, Nitro, Insulin, Cardizem)? @ -No Were any procedures done? @ -No Diagnosis/symptom? @ -Left second metatarsal fracture Acute, or Chronic, or Acute on Chronic? @ -Acute Uncomplicated (without systemic symptoms) or Complicated (systemic symptoms)? @ -Uncomplicated Side effects of treatment? @ -No Exacerbation, Progression, or Severe Exacerbation? @ -No Poses a threat to life or bodily function? How? (Chest pain, USA, ND, pneumonia, PE, COPD, DKA, ARF, appy, cholecystitis, CVA, Diverticulitis, Homicidal, Suicidal, threat to staff... and all critical care pts) @ -No Disposition Clinical Impression: Fracture of second metatarsal bone of left foot Disposition: HOME SELF-CARE Condition: Good Instructions (If sedation given, give patient instructions): Foot Contusion (ED), Foot Fracture in Adults (ED), Suspected Fracture (ED) Additional Instructions: Please return to the Emergency Department if symptoms worsen or any other concerns. Please follow-up with orthopedist or solution strategist. Is patient prescribed a controlled substance at d/c from ED?: No Referrals: Guillaume Martinez MD [Primary Care Provider] - 1-2 days Decision Time: 18:33
[2023-04-23] MEDS ORDERED: KETOROLAC 15 MG/ML 1 ML VIAL IM STA (16:59)
--- NOTE | 2023-04-23 17:54 | XR ---
EXAMINATION TYPE: Limited right hand complete left foot radiographs DATE OF EXAM: 04/23/2023 5:29 PM CLINICAL INDICATION:Male, 42 years old with history of metal aletha fell onto garry feet; [facility] COMPARISON: None TECHNIQUE: Right foot was evaluated in frontal and oblique in the left was evaluated in frontal later al and oblique. FINDINGS: No evidence of any acute osseous pathology. No evidence of soft tissue swelling. Joints are preserve d. Soft tissue swelling throughout the soft tissues without evidence for fracture. IMPRESSION: Soft tissue swelling throughout the cecum without evidence of fracture.
[2023-04-23 19:32] VITALS: BP 159/79; PULSE 80; RESP 16; TEMP 97.9
== END 2023-04-23 19:32 | disposition home or self-care (01) ==
LOC: EC 16:44
DX: S92.322A Displaced fracture of second metatarsal bone, left foot, initial encounter for closed fracture (principal); J45.909 Unspecified asthma, uncomplicated; I10 Essential (primary) hypertension; F17.200 Nicotine dependence, unspecified, uncomplicated; Z86.59 Personal history of other mental and behavioral disorders; Z79.899 Other long term (current) drug therapy; Z88.6 Allergy status to analgesic agent; Z88.0 Allergy status to penicillin; W20.8XXA Other cause of strike by thrown, projected or falling object, initial encounter
CPT/HCPCS: 73630; 99283; 96372; J1885

== ENCOUNTER → 2024-03-23 | Outpatient (CLI) | payer OTHER | END | disposition home or self-care (01) | LOC: LABPRL 12:34 → MERGE 12:34 | PROVIDERS: ATTEND Internal Medicine | CPT/HCPCS: 80053; 80061; 82607; 82728; 82746; 83540; 83550; 84443; 85025 ==

== ENCOUNTER → 2024-05-23 | Outpatient (CLI) | payer OTHER ==
--- NOTE | 2024-05-23 17:40 | MR ---
EXAMINATION TYPE: MR lumbar spine wo/w con DATE OF EXAM: 05/23/2024 COMPARISON: 03/14/2019 HISTORY: Low back pain into both legs more in the left, Back surgery 07-28-2021 CONTRAST: 10 mL intravenous Gadavist. TECHNIQUE: Multiplanar, multisequence images of the lumbar spine were acquired. FINDINGS: L5-S1: No significant disc bulge or disc herniation. No spinal canal stenosis. No foraminal stenosi s. L4-L5: No recurrent disc herniation at this level. There are some superior L5 endplate changes eviden t, an interval change. No signal abnormalities suggest acute discitis. Mild disc desiccation is prese nt. No spinal canal stenosis. No foraminal stenosis. Mild facet hypertrophy is present. L3-L4: No significant disc bulge or disc herniation. No spinal canal stenosis. No foraminal stenosi s. L2-L3: No significant disc bulge or disc herniation. No spinal canal stenosis. No foraminal stenosi s. L1-L2: No significant disc bulge or disc herniation. No spinal canal stenosis. No foraminal stenosi s. T12-L1: No significant disc bulge or disc herniation. No spinal canal stenosis. No foraminal stenos is. No abnormal enhancement. Postsurgical change and susceptibility artifact just posterior to L5. IMPRESSION: 1. No recurrent disc herniation L4-5. 2. There is some posterior superior endplate change at L5 which is new from comparison. This may be a chronic change. [facility], Workstation: [facility], 05/23/2024 5:38 PM
== END | disposition home or self-care (01) ==
LOC: RADMRIMAIN 13:20
PROVIDERS: ATTEND Physical Medicine & Rehabilitation
DX: M54.51 Vertebrogenic low back pain
CPT/HCPCS: 72158

== ENCOUNTER → 2024-06-09 | Outpatient (CLI) | payer OTHER ==
[~2024-06-09] MED LIST: REGADENOSON 0.4 MG/5 ML SYRINGE IV ONE
--- NOTE | 2024-06-09 11:28 | CA ---
Lexiscan Nuclear Stress Test Report Name: Gonzalez Tidwell Exam Date: 06/09/2024 10:41 Exam Location: [place] Stress Ht (in): 71 Wt (lb): 220 BSA: 2.20 Ordering Phys: Guillaume Martinez DO Referring Phys: Guillaume Martinez DO Technologist: NIA Age: 43 Gender: M : 1980 Procedure CPT: Indications: R07.9 CHEST PAIN ICD-10 Codes: Patient History: Chest pain Medications: Meds past 24 hrs: Pretest Chest Pain: STRESS TEST Lexiscan Protocol Exercise Duration (min:sec): 02:[address] Depressions (mm): Angina Score: Boothe Score: Resting HR (bpm): 65 Peak HR (bpm): 108 Resting BP (mmHg): 127 / 71 Peak BP (mmHg): 148 / 76 MPHR: 175 Target HR: 149 % MPHR: 62 METS: 1.0 Total Dose: Peak Dose: Atropine: Double Product: 34149 BP Response: Stress Termination: Infusion complete Stress Symptoms: Nausea that resolved quickly. Stress Summary: ECG ANALYSIS Resting ECG: Normal sinus rhythm normal axis normal intervals Stress ECG: Patient was given intravenous Lexiscan as per protocol did not have chest pain or diagnostic ST segment depression CONCLUSIONS Negative stress test by EKG criteria Cardiolite portion of the stress test will be reported separately Dr. Valeriano Gil MD (Electronically Signed) Final Date: 09 June 2024 11:27
--- NOTE | 2024-06-09 12:26 | NM ---
EXAMINATION TYPE: NM stress lexiscan cardiolite DATE OF EXAM: 06/09/2024 COMPARISON: NONE CLINICAL INDICATION: Male, 43 years old with history of R07.9 chest pain; TECHNIQUE: After the intravenous administration of 7.93 mCi Tc 99m Sestamibi - Cardiolite resting SP ECT images acquired 55 minutes post injection. The patient received 0.4mg Lexiscan, 24.8 mCi Tc 99m Sestamibi - Stress images obtained [address] injection FINDINGS: Review of stress and rest SPECT images demonstrates prominent fixed perfusion defect along the inferi or wall extending to the apical inferoseptal wall. No discrete reversibility is seen. Gated analysis shows normal wall motion with an estimated left ventricular ejection fraction of 60 %. TID is upper limits of normal at 1.14. IMPRESSION: 1. Prominent diaphragmatic attenuation artifact. This is favored over old inferior wall infarct. Clin ically correlate. 2. Otherwise, no discrete reversibility is seen. [facility], , 06/09/2024 12:23 PM
== END | disposition home or self-care (01) ==
LOC: RADNMMAIN 08:45
PROVIDERS: ATTEND Internal Medicine
DX: R07.9 Chest pain, unspecified (principal)
CPT/HCPCS: 78452; 93017